=== PATIENT | male | born 1985 | race Caucasian/White ===

== ENCOUNTER 2016-08-07 00:52 | Emergency (ER) | payer SELFPAY ==
[~2016-08-07] VITALS: Ht 185.4 cm; Wt 80.5 kg
[2016-08-07 00:55] VITALS: Ht 185.4 cm; Wt 80.5 kg
--- NOTE | 2016-08-07 01:22 | ERD ---
ER Documentation Chief Complaint Date/Time DATE: 08/07/16 TIME: 01:20 Chief Complaint right hand laceration with broken glass x 30 minutes ago HPI 30-year-old male presents here in emergency department for complaints of right dorsal aspect of the hand laceration wounds acquired 30 minutes prior to arrival. Patient accidentally got cut by glass. Patient is able to move the joint of the right hand without any difficulty and without any restriction. Patient described the pain as burning pain, 4/scale, as was upon touching the area. Patient did not take any medications to help with symptoms. Patient denies any joint involvement. ROS All systems reviewed and are negative except as per history of present illness. Medications Home Meds Reported Medications [none] Unknown Strength No Conflict Check 08/07/16 Allergies Allergies: Coded Allergies: No Known Drug Allergies (Verified Allergy, Unknown, 08/07/16) PMhx/Soc Unknown tetanus immunization Medical and Surgical Hx: pt denies Medical Hx, pt denies Surgical Hx History of Surgery: No Anesthesia Reaction: No Hx Neurological Disorder: No Hx Respiratory Disorders: No Hx Cardiac Disorders: No Hx Psychiatric Problems: No Hx Miscellaneous Medical Probl: No Hx Alcohol Use: Yes Hx Tobacco Use: No Smoking Status: Never smoker FmHx Family History: No coronary disease, No diabetes, No other Physical Exam Vitals Vital Signs Date Time Temp Pulse Resp B/P Pulse Ox O2 Delivery O2 Flow Rate FiO2 08/07/16 00:55 97.0 105 20 141/75 98 Physical Exam GENERAL: The patient is well developed and appropriate for usual state of health, in no apparent distress. CHEST: Clear to auscultation bilaterally. There are no rales, wheezes or rhonchi. HEART: Regular rate and rhythm. No murmurs, clicks, rubs or gallops. No S3 or S4. ABDOMEN: Soft, nontender and nondistended. Good bowel sounds. No rebound or guarding. No gross peritonitis. No gross organomegaly or masses. No Gómez sign or McBurney point tenderness. BACK: No midline or flank tenderness. EXTREMITIES: Equal pulses bilaterally. There is no peripheral clubbing, cyanosis or edema. No focal swelling or erythema. Full range of motion. Grossly neurovascularly intact. NEURO: Alert and oriented. Cranial nerves 2-12 intact. Motor strength in all 4 extremities with 5/5 strength. Sensation grossly intact. Normal speech and gait. SKIN: 3 superficial laceration was noted in the dorsal aspect of the right hand , one laceration when is 2 cm superficial, extends up to the dermal layer, other laceration is 1.5 cm superficial, extends up to the dermal layer, 0.5 cm laceration 1 extends up to the dermal layer. No tendon involvement noted. There is no apparent rash or petechia. The skin is warm and dry. HEMATOLOGIC AND LYMPHATIC: There is no evidence of excessive bruising or lymphedema. No gross cervical, axillary, or inguinal lymphadenopathy. Results 24 hrs Current Medications Medications (Trade) Dose Ordered Sig/Victoria Route PRN Reason Start Time Stop Time Status Last Admin Dose Admin Diphtheria/ Tetanus/Acell Pertussis (Adacel) 0.5 ml ONCE ONCE IM* 08/07/16 01:30 08/07/16 01:31 DC 08/07/16 01:19 Tdap was given to prevent tetanus. Patient tolerated medication well. PROCEDURE: XR Hand. CLINICAL INDICATION: Laceration. Possible foreign body.. Pain. TECHNIQUE: Three views of the right hand were obtained. COMPARISON: No prior studies are available for comparison. FINDINGS: No fracture is identified. Joint relationships are maintained. Bone mineralization is within normal limits. Soft tissues are unremarkable. There is no radiopaque foreign body. IMPRESSION: No acute fracture. No radiopaque foreign body. RPTAT: [facility]VK .Zeb Gonzalez MD, Date Time Electronically viewed and signed by .Zeb Gonzalez MD, on 08/07/2016 02:00 .K/ Procedures/MDM Procedure Note: After obtaining informed consent, the wound was irrigated with 250 ml of normal saline and cleaned with diluted betadine. Using aseptic technique, the wound was approximated using a dermabond and Steri-Strips. After the procedure, the wound was well approximated. Patient tolerated procedure well. Medical Decision Making: Patient's pain is most likely consistent with a laceration wounds noted in the right hand, no foreign body noted there is no suspicion for neurovascular compromise. Patient has intact sensation and circulation of the affected extremity. There is low suspicion for septic arthritis. Patient does not have any fever. Radiology exams of the affected area does not show any fracture or dislocation. Disposition: Home. Patient is given prescription for, Keflex to prevent infection, advised to have wound check in 2 days, avoid chemicals, wetting the area or any moisturizers on affected area for at least 7-10 days.. Patient was advised to elevate the affected area. Patient was advised that if symptoms are worse, numbness, tingling, high fever, unable to move joint, worsening symptoms , to return to emergency department immediately. Otherwise, patient is advised to follow up with the primary care doctor 2 days for wound check. Departure Diagnosis: Primary Impression: Hand laceration Encounter type: initial encounter Laterality: right Qualified Code: S61.411A - Hand laceration, right, initial encounter Condition: Stable Patient Instructions: Laceration, Extremity (Skin Glue) Additional Instructions: Patient is given prescription for, Keflex to prevent infection, advised to have wound check in 2 days, avoid chemicals, wetting the area or any moisturizers on affected area for at least 7-10 days.. Patient was advised to elevate the affected area. Patient was advised that if symptoms are worse, numbness, tingling, high fever, unable to move joint, worsening symptoms, to return to emergency department immediately. Otherwise, patient is advised to follow up with the primary care doctor 2 days for wound check. CHAY AVILEZ NP Aug 07, 2016 01:22
[2016-08-07] MEDS ORDERED: DIPHTH/TET/ACEL PERTUSS (ADULT) 0.5 ML VIAL IM* ONE (01:30)
--- NOTE | 2016-08-07 02:00 | RADRPT ---
PROCEDURE: XR Hand. CLINICAL INDICATION: Laceration. Possible foreign body.. Pain. TECHNIQUE: Three views of the right hand were obtained. COMPARISON: No prior studies are available for comparison. FINDINGS: No fracture is identified. Joint relationships are maintained. Bone mineralization is within ja l limits. Soft tissues are unremarkable. There is no radiopaque foreign body. IMPRESSION: No acute fracture. No radiopaque foreign body. RPTAT: [facility]K .Zeb Gonzalez MD, Date Time Electronically viewed and signed by .Zeb Gonzalez MD, on 08/07/2016 02:00 .K/
[2016-08-07] MEDS ORDERED: CEPH-443 PO (02:36)
[2016-08-07 02:54] VITALS: PULSE 80; RESP 20; TEMP 98.6
== END 2016-08-07 02:50 | disposition home or self-care (01) ==
LOC: FTE 00:52
DX: S61.411A Laceration without foreign body of right hand, initial encounter (principal); W25.XXXA Contact with sharp glass, initial encounter; Y92.9 Unspecified place or not applicable; Z23 Encounter for immunization
CPT/HCPCS: 90471; 90715